=== PATIENT | male | born 1990 | race Caucasian/White ===

== ENCOUNTER 2017-01-25 08:20 | Emergency (ER) | payer SELFPAY ==
[2017-01-25] MEDS ORDERED: MAALOX/LIDO2%VISC/SIMETHICONE 40 ML BOT ONE (09:07)
[2017-01-25] MEDS ORDERED: PANTOPRAZOLE 40 MG TABLET DR PO ONE (09:07)
[2017-01-25] MEDS ORDERED: ONDANSETRON 4 MG ODT TAB ONE (09:08)
[2017-01-25 09:24] LABS: ABSOLUTE NEUTROPHIL COUNT 7.1 K/mm3 (1.8-7.7); BASO % 0.4 % (0.2-1.0); EOS # 0.1 (0.0-0.5); EOS % 0.8 % (0.9-2.9); HEMATOCRIT 44.7 % (32.0-52.0); HEMOGLOBIN 15.2 gm/l (14.0-18.0); IMM NEUT% 0.3 % (0-1); LYMPH # 1.6 (1.0-4.8); LYMPH % 16.7 % (15-45); MEAN CELL VOLUME 87.8 fl (80.0-94.0); MEAN CORPUSCULAR HEMOGLOBIN 29.9 pg (27.0-31.0); MEAN PLATELET VOLUME 9.6 fl (7.4-10.4); MONO # 0.8 (0.0-0.8); MONO % 8.4 % (4-12); NEUT % 73.4 % (43-75); PLATELET COUNT 341 K/mm3 (130-400); RED CELL DISTRIBUTION WIDTH 12.8 % (11.5-14.5)
[2017-01-25 09:44] LABS: ALB/GLOB RATIO 1.4 (>1.0); ALBUMIN 4.7 gm/dL (3.5-5.7); CALCIUM 9.7 mg/dL (8.6-10.3)
== END 2017-01-25 10:03 | disposition home or self-care (01) ==
LOC: ED 08:20
DX: K29.70 Gastritis, unspecified, without bleeding (principal); E66.9 Obesity, unspecified; F17.210 Nicotine dependence, cigarettes, uncomplicated
CPT/HCPCS: 82150; 85025; 80053; 86901; 86850 ×3; 99283 ×2; A9270 ×3